=== PATIENT | female | born 1975 | race Hispanic/Latino ===

== ENCOUNTER 2020-10-24 01:03 | Observation (INO) | payer SELFPAY ==
[2020-10-24] VITALS (8 sets, daily range): BP systolic 107–143; BP diastolic 74–95
[~2020-10-24] VITALS: Ht 160 cm; Wt 72.6 kg
[~2020-10-24 01:03] MED LIST: ISOMETHEPT-DIC1 EACH PO
[2020-10-24] MEDS ORDERED: MORPHINE SULFATE INJ 4 MG/ML INJ 1ML IV STA (01:14)
[2020-10-24] MEDS ORDERED: PANTOPRAZOLE 40 MG 10ML VIAL IV STA (01:14)
[2020-10-24] MEDS ORDERED: ONDANSETRON HCL INJ 2MG/ML 2ML 2 MG/ML VIAL IV STA (01:14)
[2020-10-24] MEDS ORDERED: DICYCLOMINE HCL 20 MG/2 ML VIAL IM ONE ×2 (01:15→01:25)
[2020-10-24 01:22] LABS: BASOPHILS # (AUTO) 0.1 (0.0-0.1); BASOPHILS % 0.7 % (0.0-1.0); EOSINOPHILS # (AUTO) 0.1 (0.0-0.4); EOSINOPHILS % 1.1 % (0.0-6.0); HEMATOCRIT 38.6 % (34.2-44.1); LYMPHOCYTES # (AUTO) 4.3 (1.0-3.2); LYMPHOCYTES % 48.2 % (18.0-39.1); MEAN CORPUSCULAR HGB CONC 33.7 g/dL (31-35); MEAN CORPUSCULAR VOLUME 92.1 fL (81-99); MONOCYTES # (AUTO) 0.9 (0.2-0.8); NEUTROPHILS # (AUTO) 3.5 (2.1-6.9); NEUTROPHILS % 39.7 % (38.7-80.0); PLATELET COUNT 166 x10e3/uL (140-360); RED BLOOD COUNT 4.19 x10e6/uL (3.6-5.1); RED CELL DISTRIBUTION WIDTH 12.1 % (11.7-14.4)
[2020-10-24 01:24] LABS: BILIRUBIN,URINE NEGATIVE (NEGATIVE); CLARITY,URINE SL CLOUDY (CLEAR); COLOR,URINE YELLOW (YELLOW); KETONES,URINE TRACE (NEGATIVE); LEUKOCYTE ESTERASE ,URINE NEGATIVE (NEGATIVE); NITRITE,URINE NEGATIVE (NEGATIVE); PROTEIN,URINE DIPSTICK NEGATIVE (NEGATIVE); URINE UROBILINOGEN 0.2 mg/dL (0.2 - 1)
[2020-10-24 01:25] LABS: PREGNANCY TEST, URINE NEGATIVE (NEGATIVE)
[2020-10-24] MEDS ORDERED: MORPHINE SULFATE INJ 4 MG/ML INJ 1ML ONE (01:25)
[2020-10-24] MEDS ORDERED: ONDANSETRON HCL INJ 2MG/ML 2ML 2 MG/ML VIAL ONE ×2 (01:26→12:15)
[2020-10-24] MEDS ORDERED: PANTOPRAZOLE 40 MG 10ML VIAL ONE (01:26)
[2020-10-24 01:31] LABS: BACTERIA,URINE MODERATE /HPF; EPITHELIAL CELLS,URINE MODERATE /LPF
[2020-10-24 01:37] LABS: AMYLASE 69 U/L (25-125); LIPASE 34 U/L (8-78)
[2020-10-24 01:41] LABS: ALANINE AMINOTRANSFERASE 15 IU/L (0-55); ALBUMIN 3.9 g/dL (3.5-5.0); ALKALINE PHOSPHATASE 50 IU/L (40-150); ANION GAP 13.2 mmol/L (8-16); BLOOD UREA NITROGEN 11 mg/dL (7-26); BUN/CREATININE RATIO 13 (6-25); CALCIUM 8.6 mg/dL (8.4-10.2); CARBON DIOXIDE 23 mmol/L (22-29); CHLORIDE 109 mmol/L (98-107); CREATINE KINASE 119 IU/L (29-168); CREATININE, SERUM 0.88 mg/dL (0.57-1.11); EST GLOMERULAR FILTRATION RATE > 60 ML/MIN (60-); GLUCOSE 109 mg/dL (74-118); POTASSIUM 4.2 mmol/L (3.5-5.1); SODIUM 141 mmol/L (136-145)
[2020-10-24 01:46] LABS: ALBUMIN/GLOBULIN RATIO 1.1 (0.8-2.0)
[2020-10-24] MEDS ORDERED: HYDROMORPHONE 1MG/1ML INJ IV STA (03:40)
[2020-10-24] MEDS ORDERED: SODIUM CHLORIDE 0.9% 1000ML 1,000 ML IV SCH (03:45)
[2020-10-24] MEDS ORDERED: ONDANSETRON HCL INJ 2MG/ML 2ML 2 MG/ML VIAL IV PRN ×2 (03:45→08:30)
[2020-10-24] MEDS ORDERED: HYDROMORPHONE 1MG/1ML INJ IV PRN ×2 (03:45→10:30)
[2020-10-24] MEDS ORDERED: PIPER-TAZ 3.375 GM / NS 50ML IV SCH (06:00)
[2020-10-24] MEDS ORDERED: BUPIVACAINE HCL 0.5% INJ 30 ML VIAL INJ ONE (07:31)
[2020-10-24] MEDS ORDERED: ACETAMINOPHEN 325 MG TAB PO PRN (08:30)
[2020-10-24] MEDS: SODIUM CHLORIDE 0.9% 1000ML 1,000 ML IV SCH ×2 (10:04→18:05)
[2020-10-24] MEDS ORDERED: FENTANYL CITRATE/PF 100MCG/2 ML INJ ONE (11:26)
[2020-10-24] MEDS ORDERED: MIDAZOLAM HCL 2 MG/2 ML VIAL ONE (11:26)
[2020-10-24] MEDS ORDERED: PROPRANOLOL HCL80 MG PO (12:08)
[2020-10-24] MEDS ORDERED: PROVERA5 MG PO (12:08)
[2020-10-24] MEDS ORDERED: BIOTIN2500 MCG PO (12:08)
[2020-10-24] MEDS ORDERED: ROCURONIUM BROMIDE 10 MG/ML 5ML VIAL IV ONE (12:15)
[2020-10-24] MEDS ORDERED: GLYCOPYRROLATE INJ 0.2 MG/ML VIAL ONE (12:15)
[2020-10-24] MEDS ORDERED: DEXAMETHASONE SOD PHOS INJ 4 MG/ML VIAL ONE (12:15)
[2020-10-24] MEDS ORDERED: NEOSTIGMINE 1 MG/ML 10ML VIAL ONE (12:15)
[2020-10-24] MEDS ORDERED: SEVOFLURANE INHAL SOLN 250 ML PEN BTL ONE (12:15)
[2020-10-24] MEDS ORDERED: KETOROLAC TROMETHAMINE 30 MG/ML VIAL ONE (12:15)
[2020-10-24] MEDS ORDERED: PROPOFOL IV EMULSION 10 MG/ML 20 ML VIAL ONE (12:15)
[2020-10-24] MEDS: PIPER-TAZ 3.375 GM / NS 50ML IV SCH ×2 (15:06→22:00)
[2020-10-24] MEDS: HYDROCODONE/APAP 5MG-325MG TAB PO PRN ×2 (16:28→20:47)
[2020-10-25] VITALS (7 sets, daily range): BP systolic 91–110; BP diastolic 58–74
[2020-10-25] MEDS: SODIUM CHLORIDE 0.9% 1000ML 1,000 ML IV SCH (01:42)
[2020-10-25 06:07] LABS: BASOPHILS # (AUTO) 0.1 (0.0-0.1); BASOPHILS % 0.5 % (0.0-1.0); EOSINOPHILS % 0.4 % (0.0-6.0); HEMATOCRIT 37.9 % (34.2-44.1); HEMOGLOBIN 12.6 g/dL (12.0-16.0); LYMPHOCYTES # (AUTO) 2.7 (1.0-3.2); LYMPHOCYTES % 25.5 % (18.0-39.1); MEAN CORPUSCULAR HEMOGLOBIN 30.7 pg (28-32); MEAN CORPUSCULAR HGB CONC 33.2 g/dL (31-35); MEAN CORPUSCULAR VOLUME 92.4 fL (81-99); MONOCYTES # (AUTO) 0.9 (0.2-0.8); MONOCYTES % 8.5 % (4.4-11.3); NEUTROPHILS # (AUTO) 6.9 (2.1-6.9); NEUTROPHILS % 64.8 % (38.7-80.0); PLATELET COUNT 147 x10e3/uL (140-360)
[2020-10-25] MEDS: PIPER-TAZ 3.375 GM / NS 50ML IV SCH (06:15)
[2020-10-25 06:27] LABS: ALANINE AMINOTRANSFERASE 35 IU/L (0-55); ALBUMIN 3.4 g/dL (3.5-5.0); ALBUMIN/GLOBULIN RATIO 1.1 (0.8-2.0); ALKALINE PHOSPHATASE 42 IU/L (40-150); AMYLASE 47 U/L (25-125); ANION GAP 10.6 mmol/L (8-16); BLOOD UREA NITROGEN 9 mg/dL (7-26); BUN/CREATININE RATIO 12 (6-25); CALCIUM 8.1 mg/dL (8.4-10.2); CARBON DIOXIDE 23 mmol/L (22-29); CHLORIDE 110 mmol/L (98-107); CREATININE, SERUM 0.74 mg/dL (0.57-1.11); EST GLOMERULAR FILTRATION RATE > 60 ML/MIN (60-); GLUCOSE 115 mg/dL (74-118); LIPASE 11 U/L (8-78); POTASSIUM 3.6 mmol/L (3.5-5.1); SODIUM 140 mmol/L (136-145)
[2020-10-25] MEDS ORDERED: MEDROXYPROGESTERONE ACETATE 2.5 MG TAB PO SCH (09:00)
[2020-10-25] MEDS ORDERED: PROPRANOLOL HCL 80 MG CAPCR PO SCH (09:00)
[2020-10-25] MEDS ORDERED: TYLENOL # 31 EA PO (10:25)
[2020-10-25] MEDS ORDERED: ULTRACET TABLE1 EACH (11:02)
== END 2020-10-25 11:15 | disposition home or self-care (01) ==
LOC: ER 01:43 → UNDOADMOB 03:47 → ERHOLD 03:47 → OR 07:43 → PACU V 07:45 → MED/SURG3 09:24 → MED/SURG 14:19
PROVIDERS: ADMIT Internal Medicine; ATTEND Internal Medicine
DX: K80.00 Calculus of gallbladder with acute cholecystitis without obstruction (principal); K82.8 Other specified diseases of gallbladder; I10 Essential (primary) hypertension; G43.909 Migraine, unspecified, not intractable, without status migrainosus; Z20.828 Contact with and (suspected) exposure to other viral communicable diseases
CPT/HCPCS: 36415 ×2; 47562; 76705; 80053 ×2; 81001; 81025; 82150 ×2; 82550; 82553; 83690 ×2; 84484; 85025 ×2; 88304; 93005; 96374; 96375; 99284; C9113; G0378 ×2; J0500; J1100; J1170; J1885; J2250; J2270; J2405; J2543 ×2; J2704; J2710; J3010; J7030; U0002

== ENCOUNTER 2023-04-14 18:40 | Inpatient (IN) | payer OTHER ==
[~2023-04-14] VITALS: Ht 160 cm; Wt 72.6 kg
[~2023-04-14 18:40] MED LIST changes: +BIOTIN2500 MCG PO; +PROPRANOLOL HCL80 MG PO; +PROVERA5 MG PO; +TYLENOL # 31 EA PO; +ULTRACET TABLE1 EACH
[2023-04-14] MEDS ORDERED: KETOROLAC TROMETHAMINE 30 MG/ML VIAL IV STA (19:02)
[2023-04-14] MEDS ORDERED: ONDANSETRON HCL INJ 2MG/ML 2ML 2 MG/ML VIAL IV STA (19:02)
[2023-04-14 19:12] LABS: BASOPHILS % 0.2 % (0.0-1.0); EOSINOPHILS % 0.3 % (0.0-6.0); HEMATOCRIT 38.6 % (34.2-44.1); HEMOGLOBIN 12.8 g/dL (12.0-16.0); LYMPHOCYTES # (AUTO) 2.5 (1.0-3.2); LYMPHOCYTES % 16.1 % (18.0-39.1); MEAN CORPUSCULAR HEMOGLOBIN 30.8 pg (28-32); MEAN CORPUSCULAR HGB CONC 33.2 g/dL (31-35); MONOCYTES # (AUTO) 0.8 (0.2-0.8); MONOCYTES % 4.8 % (4.4-11.3); NEUTROPHILS # (AUTO) 12.3 (2.1-6.9); NEUTROPHILS % 78.2 % (38.7-80.0); PLATELET COUNT 159 x10e3/uL (140-360); RED BLOOD COUNT 4.15 x10e6/uL (3.6-5.1); RED CELL DISTRIBUTION WIDTH 12.1 % (11.7-14.4)
[2023-04-14] MEDS ORDERED: SODIUM CHLORIDE 0.9% 1000ML 1,000 ML IV SCH (19:15)
[2023-04-14 19:24] LABS: CLARITY,URINE SL CLOUDY (CLEAR); COLOR,URINE YELLOW (YELLOW); KETONES,URINE 1+ (NEGATIVE); LEUKOCYTE ESTERASE ,URINE TRACE (NEGATIVE); NITRITE,URINE NEGATIVE (NEGATIVE); PROTEIN,URINE DIPSTICK 1+ (NEGATIVE); URINE UROBILINOGEN 1 mg/dL (0.2 - 1)
[2023-04-14 19:30] LABS: ALBUMIN 3.7 g/dL (3.5-5.0); ALBUMIN/GLOBULIN RATIO 1.2 (0.8-2.0); ANION GAP 11.8 mmol/L (8-16); CALCIUM 8.8 mg/dL (8.4-10.2); CREATININE, SERUM 0.78 mg/dL (0.57-1.11); POTASSIUM 3.8 mmol/L (3.5-5.1)
[2023-04-14 19:35] LABS: AMORPHOUS SEDIMENT,URINE MODERATE (FEW); BACTERIA,URINE MODERATE /HPF; EPITHELIAL CELLS,URINE MANY /LPF; WBC,URINE (MAN) 0-5 /HPF (0-5)
[2023-04-14] MEDS ORDERED: IOPAMIDOL 370 MG/ML 100 ML INFUS..BTL INJ ONE (20:18)
[2023-04-14] MEDS ORDERED: Morphine 4mg INJECTION 4 MG/ML INJ IV ONE (20:30)
[2023-04-14] MEDS ORDERED: Morphine 4mg INJECTION 4 MG/ML INJ IV PRN (21:15)
[2023-04-14] MEDS ORDERED: ACETAMINOPHEN 1000 MG/100 ML IV PRN (21:15)
[2023-04-14] MEDS: SODIUM CHLORIDE 0.9% 1000ML 1,000 ML IV SCH (21:55)
[2023-04-14] MEDS ORDERED: RIZATRIPTAN10 MG PO (23:31)
[2023-04-15] MEDS ORDERED: DIPHENHYDRAMINE HCL INJ 50 MG/ML VIAL IV ONE
[2023-04-15] MEDS: ONDANSETRON HCL INJ 2MG/ML 2ML 2 MG/ML VIAL IV PRN ×4 (00:20→21:05)
[2023-04-15] MEDS: Morphine 4mg INJECTION 4 MG/ML INJ IV PRN ×4 (00:21→21:05)
[2023-04-15 04:57] LABS: BASOPHILS % 0.2 % (0.0-1.0); EOSINOPHILS # (AUTO) 0.1 (0.0-0.4); EOSINOPHILS % 0.7 % (0.0-6.0); HEMATOCRIT 34.2 % (34.2-44.1); HEMOGLOBIN 11.3 g/dL (12.0-16.0); LYMPHOCYTES % 25.3 % (18.0-39.1); MEAN CORPUSCULAR HEMOGLOBIN 31.4 pg (28-32); MONOCYTES # (AUTO) 0.6 (0.2-0.8); NEUTROPHILS # (AUTO) 8.2 (2.1-6.9); NEUTROPHILS % 68.5 % (38.7-80.0); PLATELET COUNT 128 x10e3/uL (140-360); RED CELL DISTRIBUTION WIDTH 12.4 % (11.7-14.4)
[2023-04-15 05:21] LABS: ALBUMIN/GLOBULIN RATIO 1.2 (0.8-2.0); ANION GAP 8.7 mmol/L (8-16); CALCIUM 7.7 mg/dL (8.4-10.2); CREATININE, SERUM 0.75 mg/dL (0.57-1.11); POTASSIUM 3.7 mmol/L (3.5-5.1)
[2023-04-15 08:10] VITALS: BP 97/65; PULSE 62; RESP 16; TEMP 98.4; O2SAT 98
[2023-04-15] MEDS: SODIUM CHLORIDE 0.9% 1000ML 1,000 ML IV SCH ×3 (08:36→16:01)
[2023-04-15 09:02] VITALS: BP 97/65; PULSE 62; RESP 16; TEMP 98.4; O2SAT 98
[2023-04-15] MEDS ORDERED: HYDRALAZINE HCL 20 MG/ML VIAL IV PRN (10:45)
[2023-04-15 11:52] VITALS: BP 111/75; PULSE 62; RESP 14; TEMP 98.6; O2SAT 100
[2023-04-15 16:02] VITALS: BP 120/83; PULSE 71; RESP 15; TEMP 98.8; O2SAT 98
[2023-04-15] MEDS ORDERED: DIPHENHYDRAMINE HCL INJ 50 MG/ML VIAL IV PRN (19:45)
[2023-04-15 20:00] VITALS: BP 119/76; PULSE 76; RESP 18; TEMP 97.3; O2SAT 100
[2023-04-15] MEDS ORDERED: BISACODYL 10 MG SUPP PR ONE (20:00)
[2023-04-15 20:42] VITALS: BP 119/76; PULSE 76; RESP 18; TEMP 97.3; O2SAT 100
[2023-04-16] VITALS (9 sets, daily range): BP systolic 99–112; BP diastolic 63–74; PULSE 70–86; RESP 15–19; TEMP 97.6–99.1; O2SAT 95–100
[2023-04-16] MEDS: SODIUM CHLORIDE 0.9% 1000ML 1,000 ML IV SCH ×3 (02:36→18:46)
[2023-04-16 06:23] LABS: BASOPHILS % 0.3 % (0.0-1.0); EOSINOPHILS # (AUTO) 0.1 (0.0-0.4); EOSINOPHILS % 0.5 % (0.0-6.0); HEMATOCRIT 37.5 % (34.2-44.1); HEMOGLOBIN 12.2 g/dL (12.0-16.0); LYMPHOCYTES # (AUTO) 2.1 (1.0-3.2); LYMPHOCYTES % 17.7 % (18.0-39.1); MEAN CORPUSCULAR HEMOGLOBIN 31.4 pg (28-32); MEAN CORPUSCULAR HGB CONC 32.5 g/dL (31-35); MEAN CORPUSCULAR VOLUME 96.6 fL (81-99); MONOCYTES # (AUTO) 0.5 (0.2-0.8); MONOCYTES % 4.5 % (4.4-11.3); NEUTROPHILS # (AUTO) 9.1 (2.1-6.9); NEUTROPHILS % 76.8 % (38.7-80.0); PLATELET COUNT 137 x10e3/uL (140-360); RED BLOOD COUNT 3.88 x10e6/uL (3.6-5.1); RED CELL DISTRIBUTION WIDTH 11.9 % (11.7-14.4)
[2023-04-16 06:40] LABS: ANION GAP 14.1 mmol/L (8-16); CREATININE, SERUM 0.67 mg/dL (0.57-1.11); POTASSIUM 4.1 mmol/L (3.5-5.1)
[2023-04-16] MEDS: METRONIDAZOLE 500 MG TAB PO SCH (21:26)
[2023-04-16] MEDS: Morphine 4mg INJECTION 4 MG/ML INJ IV PRN (22:00)
[2023-04-17 01:43] VITALS: BP 99/61; PULSE 88; RESP 18; TEMP 97.7; O2SAT 96
[2023-04-17 05:00] VITALS: BP 115/73; PULSE 74; RESP 16; TEMP 97.5; O2SAT 97
[2023-04-17 05:25] LABS: BASOPHILS % 0.3 % (0.0-1.0); EOSINOPHILS # (AUTO) 0.2 (0.0-0.4); EOSINOPHILS % 1.7 % (0.0-6.0); HEMATOCRIT 34.5 % (34.2-44.1); HEMOGLOBIN 11.1 g/dL (12.0-16.0); LYMPHOCYTES # (AUTO) 2.5 (1.0-3.2); LYMPHOCYTES % 28.4 % (18.0-39.1); MEAN CORPUSCULAR HEMOGLOBIN 30.7 pg (28-32); MEAN CORPUSCULAR HGB CONC 32.2 g/dL (31-35); MEAN CORPUSCULAR VOLUME 95.6 fL (81-99); MONOCYTES # (AUTO) 0.7 (0.2-0.8); MONOCYTES % 7.7 % (4.4-11.3); NEUTROPHILS # (AUTO) 5.4 (2.1-6.9); NEUTROPHILS % 61.7 % (38.7-80.0); PLATELET COUNT 136 x10e3/uL (140-360); RED BLOOD COUNT 3.61 x10e6/uL (3.6-5.1); RED CELL DISTRIBUTION WIDTH 11.9 % (11.7-14.4)
[2023-04-17] MEDS: METRONIDAZOLE 500 MG TAB PO SCH (05:32)
[2023-04-17 08:24] VITALS: BP 116/82; PULSE 63; RESP 18; TEMP 98; O2SAT 100
[2023-04-17 09:00] VITALS: BP 116/82; PULSE 63; RESP 18; TEMP 98; O2SAT 100
[2023-04-17] MEDS ORDERED: CIPROFLOXACIN 500 MG TAB PO SCH (09:00)
[2023-04-17] MEDS ORDERED: LEVOFLOXACIN500 MG PO (11:22)
[2023-04-17] MEDS ORDERED: METRONIDAZOLE500 MG PO (11:22)
== END 2023-04-17 12:49 | disposition home or self-care (01) | DRG 392 ==
LOC: ER 19:03 → ERHOLD 21:18 → MED/SURG 23:07
PROVIDERS: ADMIT Internal Medicine; ATTEND Internal Medicine
DX: K57.20 Diverticulitis of large intestine with perforation and abscess without bleeding (principal); I10 Essential (primary) hypertension
CPT/HCPCS: 0223U; 36415; 74177; 80048; 80053; 81001; 81025; 83690; 85025; 99284; J1200; J1885; J2270; J2405; J2543; J7030; Q9967